=== PATIENT | male | born 1985 | race Caucasian/White ===

== ENCOUNTER 2020-09-10 11:57 | Emergency (ER) | payer BC, OTHER ==
[2020-09-10] MEDS ORDERED: Sodium Chloride 0.9% 1,000 ML ONE (12:42)
[2020-09-10] MEDS ORDERED: Sodium Chloride 0.9% 1,000 ML IV ONE (12:43)
--- NOTE | 2020-09-10 13:06 | EDM.PDOC ---
ED HPI GENERAL MEDICAL PROBLEM - General Chief Complaint: Gastrointestinal Problem Stated Complaint: DIARRHEA X 10 DAYS JOINT PAIN Time Seen by Provider: 09/10/20 12:12 Source of Information: Reports: Patient, RN Notes Reviewed History Limitations: Reports: No Limitations - History of Present Illness INITIAL COMMENTS - FREE TEXT/NARRATIVE: Patient is a 34-year-old male presenting to the emergency part with complaints of a 10-day history of diarrhea with onset of joint pain and cramping today. He reports that he was in [facility] and returned approximately 1 week ago. [facility] he was there, he developed diarrhea. Reports he did have bloody stools up until about 4 days ago. He was seen in the walk-in clinic at [place] 4 days ago and given a soft one-time dose of azithromycin 1 g p.o. Reports 1 day after this, the blood in his stool resolved. The frequency of episodes is also decreased. So far today he has only had one episode of diarrhea. Reports his abdominal cramping is significantly improved as well. Prior to antibiotic treatment, he was having 10-30 episodes of loose stools per day. He denies any fever or chills. States he was able to eat breakfast this morning. He has had no nausea or vomiting. Up until today, he had been drinking straight water with no electrolyte replacements. This morning he took some vitamins and has been drinking fluids with electrolytes. Denies any abdominal pain at this time. Generalized Pain Score (Numeric/FACES): 10 - Related Data Allergies Allergy/AdvReac Type Severity Reaction Status Date / Time No Known Allergies Allergy Verified 09/10/20 12:04 Home Meds: Home Meds . [No Known Home Meds] 09/10/20 [History] Past Medical History HEENT History: Reports: Impaired Vision Cardiovascular History: Reports: None Respiratory History: Reports: Bronchitis, Recurrent, Pneumonia, Recurrent Gastrointestinal History: Reports: GERD Genitourinary History: Reports: None Musculoskeletal History: Reports: Back Pain, Chronic Neurological History: Reports: None Psychiatric History: Reports: None Endocrine/Metabolic History: Reports: None Hematologic History: Reports: None Immunologic History: Reports: None Oncologic (Cancer) History: Reports: None Dermatologic History: Reports: None - Infectious Disease History Infectious Disease History: Reports: Novel Coronavirus - Past Surgical History HEENT Surgical History: Reports: Oral Surgery GI Surgical History: Reports: None Musculoskeletal Surgical History: Reports: None Social & Family History - Family History Family Medical History: No Pertinent Family History GI: Reports: Other (See Below) Other GI Family History: UC - Tobacco Use Tobacco Use Status *Q: Never Tobacco User - Caffeine Use Caffeine Use: Reports: Soda - Recreational Drug Use Recreational Drug Use: No ED ROS GENERAL - Review of Systems Review Of Systems: See Below Constitutional: Reports: No Symptoms. Denies: Fever, Chills, Weakness HEENT: Reports: No Symptoms Respiratory: Reports: No Symptoms Cardiovascular: Reports: No Symptoms Endocrine: Reports: No Symptoms GI/Abdominal: Reports: Abdominal Pain (intermittent cramping), Diarrhea. Denies: Nausea, Vomiting Musculoskeletal: Reports: Joint Pain, Other (muscle cramping) Skin: Reports: No Symptoms Neurological: Reports: No Symptoms. Denies: Dizziness, Headache Psychiatric: Reports: No Symptoms Hematologic/Lymphatic: Reports: No Symptoms Immunologic: Reports: No Symptoms ED EXAM, GI/ABD - Physical Exam Exam: See Below Exam Limited By: No Limitations General Appearance: Alert, WD/WN, No Apparent Distress Throat/Mouth: Other (dry mucous membranes) Respiratory/Chest: No Respiratory Distress, Lungs Clear, Normal Breath Sounds, No Accessory Muscle Use, Chest Non-Tender Cardiovascular: Normal Peripheral Pulses, Regular Rate, Rhythm, No Edema, No Gallop, No JVD, No Murmur, No Rub GI/Abdominal Exam: Normal Bowel Sounds, Soft, Non-Tender, No Organomegaly, No Distention, No Abnormal Bruit, No Mass, Pelvis Stable Extremities: Normal Inspection, Normal Range of Motion, Non-Tender, Normal Capillary Refill, No Pedal Edema Neurological: Alert, Oriented, CN II-XII Intact, Normal Cognition, Normal Gait, Normal Reflexes, No Motor/Sensory Deficits Psychiatric: Normal Affect, Normal Mood Skin Exam: Warm, Dry, Intact, Normal Color, No Rash Course - Vital Signs Last Recorded V/S: Last Vital Signs Temp 98.3 F 09/10/20 12:10 Pulse 76 09/10/20 12:10 Resp 18 09/10/20 12:10 BP 145/94 H 09/10/20 12:10 Pulse Ox 94 L 09/10/20 12:10 - Orders/Labs/Meds Orders: Active Orders 24 hr Category Date Time Status C DIFFICILE PCR W/REFLEX [MOLEC] Stat Lab 09/10/20 14:05 Received FECAL LACTOFERRIN [MREF] Stat Lab 09/10/20 14:05 Received STL CULT SHIGA TOX CAMPY AG [MREF] Stat Lab 09/10/20 14:05 Received Labs: Laboratory Tests 09/10/20 09/10/20 Range/Units 12:35 12:35 WBC 6.16 (4.23-9.07) K/mm3 RBC 4.56 L (4.63-6.08) M/mm3 Hgb 14.4 (13.7-17.5) gm/dl Hct 41.5 (40.1-51.0) % MCV 91.0 (79.0-92.2) fl MCH 31.6 (25.7-32.2) pg MCHC 34.7 (32.2-35.5) g/dl RDW Std Deviation 41.1 (35.1-43.9) fL Plt Count 322 (163-337) K/mm3 MPV 8.8 L (9.4-12.3) fl Neut % (Auto) 58.8 (34.0-67.9) % Lymph % (Auto) 20.5 L (21.8-53.1) % [place] % (Auto) 18.7 H (5.3-12.2) % Eos % (Auto) 1.5 (0.8-7.0) Baso % (Auto) 0.3 (0.1-1.2) % Neut # (Auto) 3.63 (1.78-5.38) K/mm3 Lymph # (Auto) 1.26 L (1.32-3.57) K/mm3 [place] # (Auto) 1.15 H (0.30-0.82) K/mm3 Eos # (Auto) 0.09 (0.04-0.54) K/mm3 Baso # (Auto) 0.02 (0.01-0.08) K/mm3 Manual Slide Review Abnormal smear Sodium 139 (136-145) mEq/L Potassium 3.4 L (3.5-5.1) mEq/L Chloride 102 (98-107) mEq/L Carbon Dioxide 25 (21-32) mEq/L Anion Gap 15.4 H (5-15) BUN 16 (7-18) mg/dL Creatinine 1.1 (0.7-1.3) mg/dL Est Cr Clr Drug Dosing 96.78 mL/min Estimated GFR (MDRD) > 60 (>60) mL/min BUN/Creatinine Ratio 14.5 (14-18) Glucose 92 (70-99) mg/dL Calcium 8.8 (8.5-10.1) mg/dL Magnesium 2.1 (1.8-2.4) mg/dL Total Bilirubin 0.5 (0.2-1.0) mg/dL AST 13 L (15-37) U/L ALT 26 (16-63) U/L Alkaline Phosphatase 70 (46-116) U/L Total Protein 7.0 (6.4-8.2) g/dl Albumin 3.4 (3.4-5.0) g/dl Globulin 3.6 gm/dL Albumin/Globulin Ratio 0.9 L (1-2) Lipase 95 (73-393) U/L Meds: Medications Discontinued Medications Generic Name Dose Route Start Last Admin Trade Name Dagoq PRN Reason Stop Dose Admin Sodium Chloride Confirm 09/10/20 12:42 09/10/20 13:54 Normal Saline Administered 09/10/20 12:43 Not Given Dose 1,000 mls @ as directed .ROUTE .STK-MED ONE Sodium Chloride 1,000 mls @ 999 mls/hr 09/10/20 12:43 09/10/20 12:43 Normal Saline IV 09/10/20 13:43 999 mls/hr ONETIME ONE Administration - Re-Assessments/Exams Free Text/Narrative Re-Assessment/Exam: Pt is a 34 year old male presenting to the ER with c/o a 10 day history of diarrhea with onset of joint pain and cramping today. He was treated 4 days ago with azithromycin 1 g in the clinic. His abdominal cramping, blood in his stools, and frequency of episodes of diarrhea have improved. Blood in the stool has completely resolved. I have ordered blood work as well as stool studies. I will give him a 1 L bolus of normal saline pending electrolyte results. 09/10/20 14:28 Hematology significant for potassium minimally low at 3.4, anion gap 15.4. Magnesium is normal. Stool WBCs and C. difficile are pending. Stool cultures will take a few days to result. Patient's symptoms have improved quite a bit since his treatment with azithromycin. He is only had 2 episodes of loose stool today as opposed to the 10 that he was having prior to this. He no longer has abdominal pain and is no longer having blood in his stools. Given his significant provement, further treatment with antibiotics not indicated at this time. Recommend that he change to fluid containing electrolytes including Gatorade and Powerade. If his C. difficile should come back positive, I will notify them, however my suspicion for this is quite low given his improvement. He will be notified when stool culture results are available. Discharge instructions as documented. Departure - Departure Time of Disposition: 14:30 Disposition: Home, Self-Care 01 Condition: Good Clinical Impression: Dysenteric diarrhea - Discharge Information *PRESCRIPTION DRUG MONITORING PROGRAM REVIEWED*: No *COPY OF PRESCRIPTION DRUG MONITORING REPORT IN PATIENT MARGARET: No Instructions: Diarrhea, Adult, [id number] Referrals: PCP,None [Primary Care Provider] - Forms: ED Department Discharge Additional Instructions: You were seen in the emergency department today for reevaluation after a 10-day history of diarrhea. Blood work was completed and was found to be overall normal. Stool studies are pending. You will be notified of these when they are available. Recommend changing to Gatorade, Powerade, or Pedialyte in order to replenish electrolytes as well. Your potassium and magnesium were found to be normal today however. You may use Tylenol or ibuprofen as needed for the joint discomfort. Symptoms should continue to improve over the next few days. If you should experience any new or worsening symptoms, please not hesitate to return to the emergency department for reevaluation. Sepsis Event Note (ED) - Evaluation Sepsis Screening Result: No Definite Risk - Focused Exam Vital Signs: Vital Signs Temp Pulse Resp BP Pulse Ox 09/10/20 12:10 98.3 F 76 18 145/94 H 94 L - My Orders Last 24 Hours: My Active Orders 09/10/20 14:05 C DIFFICILE PCR W/REFLEX [MOLEC] Stat FECAL LACTOFERRIN [MREF] Stat STL CULT SHIGA TOX CAMPY AG [MREF] Stat - Assessment/Plan Last 24 Hours: My Active Orders 09/10/20 14:05 C DIFFICILE PCR W/REFLEX [MOLEC] Stat FECAL LACTOFERRIN [MREF] Stat STL CULT SHIGA TOX CAMPY AG [MREF] Stat
== END 2020-09-10 14:43 | disposition home or self-care (01) ==
LOC: JD.ED 11:57
DX: A09 Infectious gastroenteritis and colitis, unspecified (principal)
CPT/HCPCS: 36415; 80053; 83630; 83690; 83735; 85025; 87045; 87046; 87449; 87493; 87899; 99284; J7030; 99283

== ENCOUNTER 2020-09-11 01:16 | Inpatient (IN) | payer OTHER ==
[2020-09-11] MEDS ORDERED: Acetaminophen/HYDROcodone 325-5 MG Tab PO ONE (01:57)
--- NOTE | 2020-09-11 02:11 | EDM.PDOC ---
ED HPI GENERAL MEDICAL PROBLEM - General Chief Complaint: Lower Extremity Injury/Pain Stated Complaint: EXTREME PAIN Time Seen by Provider: 09/11/20 01:30 Source of Information: Reports: Patient, Family () History Limitations: Reports: No Limitations - History of Present Illness INITIAL COMMENTS - FREE TEXT/NARRATIVE: Mr. Cancino is a very pleasant 34-year-old gentleman who now presents to the ED with severe bilateral leg pain. The patient states that he was in [facility] from 08/26/2020 through 09/04/2020. He acknowledges that he drank alcohol heavily while there. About 10 days ago he developed diarrhea, which was bloody for the first 6 days, then nonbloody thereafter. He had had abdominal cramps, but no nausea or vomiting. He was seen at the walk-in clinic on 09/06/2020, and given a one-time dose of azithromycin 1 g po. Since then, the frequency of his diarrhea has diminished, and the blood resolved. He then developed pain in his wrists and ankles 2 days ago, therefore was seen in this ED yesterday afternoon. He was found to be hemodynamically stable, afebrile, saturating 94% on room air. His physical exam was grossly unremarkable. Work-up included a CBC, CMP, magnesium level, and lipase level, all of which were normal. A stool for C. difficile was sent, and has since returned as negative. A stool culture and stool lactoferrin were also sent, but have not yet returned. He was discharged with a recommendation to stay adequately hydrated and take Tylenol or ibuprofen as needed for joint discomfort. The patient now returns to the ED stating that he developed severe bilateral leg pain, throbbing in character, yesterday afternoon, after discharge from the ED. The pain is felt primarily in the ankles, but also in his feet, in his calves, and his knees. No recent fever or chills. No personal or family history of gout. Here in the ED this morning, the patient's initial BP is found to be mildly elevated at 143/87, otherwise, he is hemodynamically stable, afebrile, saturating 95% on room air. He is complaining of bilateral lower extremity pain, but does not appear to be in acute distress. The patient's PCP was Dr. Raffi aMrtinez; the patient has not found a replacement PCP. 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 [No Known Home Meds] 09/10/20 [History] Past Medical History HEENT History: Reports: Impaired Vision Gastrointestinal History: Reports: GERD (treated prn) - Infectious Disease History Infectious Disease History: Reports: Novel Coronavirus (dx'd Jan 2020) - Past Surgical History HEENT Surgical History: Reports: Oral Surgery (dental extractions) Social & Family History - Family History GI: Reports: Inflammatory Bowel Disease (Sister with ulcerative colitis) - Tobacco Use Tobacco Use Status *Q: Never Tobacco User Second Hand Smoke Exposure: No - Caffeine Use Caffeine Use: Reports: None - Alcohol Use Alcohol Use History: Yes Alcohol Use Frequency: Socially - Recreational Drug Use Recreational Drug Use: No - Living Situation & Occupation Living situation: Reports: , with Spouse, with Family (1 7-year old) 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 ED EXAM, GENERAL - Physical Exam Exam: See Below Exam Limited By: No Limitations General Appearance: Alert, WD/WN, Mild Distress (apears uncomfortable) Eye Exam: Bilateral Eye: EOMI, Normal Inspection Ears: Normal External Exam, Hearing Grossly Normal Nose: Normal Inspection Throat/Mouth: Normal Inspection, Normal Lips, Normal Voice, No Airway Compromise Head: Atraumatic, Normocephalic Neck: Normal Inspection, Full Range of Motion Respiratory/Chest: No Respiratory Distress, Lungs Clear, Normal Breath Sounds, No Accessory Muscle Use Cardiovascular: Normal Peripheral Pulses, Regular Rate, Rhythm, No Gallop, No JVD, No Murmur, No Rub Peripheral Pulses: 3+: Radial (L), Radial (R) GI/Abdominal: Normal Bowel Sounds, Soft, Non-Tender, No Organomegaly, No Distention, No Abnormal Bruit, No Mass Back Exam: Normal Inspection, Full Range of Motion, NT Extremities: Normal Capillary Refill, Other (Pain is induced, primarily in the legs, with PROM of both knees, Lt > Rt. mild tenderness to palpation of the calf muscles, primarily felt in the ankles. The ankles appear to be mildly swollen, and there is significant pain to PROM bilaterally. Both feet are also tender to palpation, although palp) Neurological: Alert, Oriented, Normal Cognition, No Motor/Sensory Deficits Psychiatric: Normal Affect Skin Exam: Warm, Dry, Intact, Normal Color, No Rash Course - Vital Signs Last Recorded V/S: Last Vital Signs Temp 36.7 C 09/11/20 01:26 Pulse 85 09/11/20 01:26 Resp 14 09/11/20 01:26 BP 143/87 H 09/11/20 01:26 Pulse Ox 95 09/11/20 01:26 - Orders/Labs/Meds Labs: Laboratory Tests 09/11/20 09/11/20 Range/Units 02:05 03:00 Creatine Kinase 79 (39-308) U/L C-Reactive Protein 12.5 H* (<1.0) mg/dL SARS-CoV-2 RNA ([facility]) Negative (NEGATIVE) Meds: Medications Discontinued Medications Generic Name Dose Route Start Last Admin Trade Name Dagoq PRN Reason Stop Dose Admin Hydrocodone Bitart/Acetaminophen 2 tab 09/11/20 01:57 09/11/20 02:09 Acetaminophen/Hydrocodone 325-5 Mg Tab PO 09/11/20 01:58 2 tab ONETIME ONE Administration Hydromorphone HCl 1 mg 09/11/20 02:52 09/11/20 02:57 Hydromorphone 1 Mg/Ml Syringe IM 09/11/20 02:53 1 mg ONETIME ONE Administration Hydromorphone HCl 1 mg 09/11/20 04:14 09/11/20 04:32 Hydromorphone 1 Mg/Ml Syringe IM 09/11/20 04:15 1 mg ONETIME ONE Administration Hydromorphone HCl 1 mg 09/11/20 06:42 Hydromorphone 1 Mg/Ml Syringe IM 09/11/20 06:43 ONETIME ONE - Re-Assessments/Exams Free Text/Narrative Re-Assessment/Exam: 09/11/20 02:05 As above, the patient was in [facility], from 08/26/2020 through 09/04/2020. While there, he developed diarrhea, which persisted for about 10 days, and was bloody for the first 6 of them. He had pain to his wrists and ankles for the past 2 days, and bilateral leg pain since this afternoon. A work-up in this ED yesterday afternoon included a CBC, CMP, magnesium level, and lipase level, all of which were unremarkable. A stool C. difficile has since returned negative. A stool culture and lactoferrin are still pending. On examination this morning, the patient has pain to his legs with PROM of both of his knees, worse on the left than the right. It is unclear if he has pain within the knees themselves. Minimal tenderness to palpation of his calf muscles, but he has significant tenderness to palpation of his ankles or feet, and to PROM of his ankles. Minimal pain with PROM of the MTPs of any of his toes. He likely has mild swelling to both of his ankles, but no skin abnormalities. I think the patient's differential diagnosis includes pseudogout, but, more likely, giardiasis. As above, a stool culture was sent yesterday. For tonight's purposes, I have ordered a CPK, to make sure that rhabdomyolysis is not present, and a CRP, to look for inflammatory markers. I do not see an indication to repeat the blood work already done yesterday. In the meantime, the patient will be given 2 tablets of [place], to help with his pain. 09/11/20 02:48 The patient's CPK is within normal limits at 79. His CRP is elevated at 12.5. 09/11/20 02:52 Test results discussed with the patient and his . As above, the patient's CRP is elevated, which can occur with infection, vasculitis, or cancer. Because the patient has no skin manifestations or decreased temperature to his lower extremities, my suspicion for vasculitis is low, and I have no reason to suspect cancer. Giardiasis, however, could cause an elevated CRP, as could a repeat infection with COVID-19 (he originally had it in Jan 2019). I therefore recommended that we retest him for COVID-19. The patient agreed. The patient states that the [place] barely helped his pain at all, and he requested additional pain medication. I ordered 1 mg of IM Dilaudid. 09/11/20 04:13 The patient's swab for the SARS-CoV-2 virus returned negative. Notified by Lila TELLEZ that the patient requested additional pain medication. I will order additional IM Dilaudid. 09/11/20 04:17 Test results discussed with the patient and his . One option would be to discharge the patient home with a prescription for [place] and have him follow-up, however, the [place] that he received earlier did not really do much of anything for him, therefore the other option would be to place him into observation/admit him to the hospital for not only pain control, but further evaluation as to the cause of his pain and elevated CRP. The patient prefers the latter. I will keep the patient here in the ED, then contact the Hospitalist around 6:30 AM. 09/11/20 06:[address] Ortiz here in the ED. He accepted the patient for placement into observation. Departure - Departure Time of Disposition: 06:49 Disposition: Refer to Observation Condition: Good Clinical Impression: Polyarthralgia - Discharge Information *PRESCRIPTION DRUG MONITORING PROGRAM REVIEWED*: Not Applicable *COPY OF PRESCRIPTION DRUG MONITORING REPORT IN PATIENT MARGARET: Not Applicable Referrals: PCP,None [Primary Care Provider] - Forms: ED Department Discharge Sepsis Event Note (ED) - Evaluation Sepsis Screening Result: No Definite Risk - Focused Exam Vital Signs: Vital Signs Temp Pulse Resp BP Pulse Ox 09/11/20 01:26 36.7 C 85 14 143/87 H 95
[2020-09-11] MEDS ORDERED: HYDROmorphone 1 MG/ML Syringe IM ONE ×3 (02:52→06:42)
[2020-09-11] MEDS ORDERED: Ondansetron 4 MG Tab.DIS PO PRN (07:05)
[2020-09-11] MEDS ORDERED: Temazepam 7.5 MG Cap PO PRN (07:05)
--- NOTE | 2020-09-11 07:09 | PCM.HP.2 ---
H&P History of Present Illness - General Date of Service: 09/11/20 Admit Problem/Dx: Admission Diagnosis/Problem Admission Diagnosis/Problem severe watery diarrhea with severe arthropathy of multiple joints. Source of Information: Patient History Limitations: Reports: No Limitations - History of Present Illness Initial Comments - Free Text/Narative: The patient is an otherwise healthy 34-year-old gentleman who had presented to the emergency department with severe watery diarrhea that has been associated with severe bilateral ankle and knee pain. The patient reports that for the past 6 days that he has had severe watery and foul-smelling diarrhea up to 20 times a day. The patient also reports that he had returned from [facility] on September 04, 2020. The patient had stayed his entire time in [facility] [place] the [place]. Further, the patient reports that he has had severe bilateral leg pain which started approximately 4 days ago. He has had difficulty ambulating due to the pain in his knees and ankles. The patient has denied any fever or chills. He has had some nausea but no vomiting. Abdominal cramping generalized. The patient has had no specific aggravating or relieving factors. The patient also reports that he has not been taking any medications. He does not use tobacco. While in the emergency department the patient had required the use of Dilaudid to help with his pain in his joints. Onset of Symptoms: Reports: Gradual Duration of Symptoms: Reports: Day(s):, Getting Worse Location: Reports: Abdomen, Generalized Quality: Reports: Burning, Stabbing Severity: Moderate Improves with: Reports: Medication, Rest Worsens with: Reports: Movement Context: Reports: Travel (Travel to [place] see HPI). Denies: Sick Contact Associated Symptoms: Reports: No Other Symptoms Bilateral Lower Leg Pain Score (Numeric/FACES): 10 - Related Data Allergies/Adverse Reactions: Allergies Allergy/AdvReac Type Severity Reaction Status Date / Time No Known Allergies Allergy Verified 09/11/20 09:12 Home Medications: Home Meds . [No Known Home Meds] 09/10/20 [History] Past Medical History HEENT History: Reports: Impaired Vision Cardiovascular History: Reports: None Respiratory History: Reports: Bronchitis, Recurrent, Pneumonia, Recurrent Gastrointestinal History: Reports: GERD (treated prn) Genitourinary History: Reports: None Musculoskeletal History: Reports: Back Pain, Chronic Neurological History: Reports: None Psychiatric History: Reports: None Endocrine/Metabolic History: Reports: None Hematologic History: Reports: None Immunologic History: Reports: None Oncologic (Cancer) History: Reports: None Dermatologic History: Reports: None - Infectious Disease History Infectious Disease History: Reports: Novel Coronavirus (dx'd Jan 2020) - Past Surgical History HEENT Surgical History: Reports: Oral Surgery (dental extractions) Social & Family History - Family History Family Medical History: No Pertinent Family History GI: Reports: Inflammatory Bowel Disease (Sister with ulcerative colitis) Other GI Family History: UC - Tobacco Use Tobacco Use Status *Q: Never Tobacco User Second Hand Smoke Exposure: No - Caffeine Use Caffeine Use: Reports: None - Recreational Drug Use Recreational Drug Use: No - Living Situation & Occupation Living situation: Reports: , with Spouse, with Family (1 7-year old) 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) H&P Review of Systems - Review of Systems: Review Of Systems: See Below General: Reports: Weakness, Decreased Appetite HEENT: Reports: No Symptoms Pulmonary: Reports: No Symptoms Cardiovascular: Reports: No Symptoms Gastrointestinal: Reports: Abdominal Pain, Diarrhea, Nausea Genitourinary: Reports: No Symptoms Musculoskeletal: Reports: Other (Multiple major joint pains) Skin: Reports: No Symptoms Psychiatric: Reports: No Symptoms Neurological: Reports: No Symptoms Hematologic/Lymphatic: Reports: No Symptoms Immunologic: Reports: No Symptoms Exam - Exam Exam: See Below - Vital Signs Vital Signs: Last Vital Signs Temp 36.7 C 09/11/20 01:26 Pulse 85 09/11/20 01:26 Resp 14 09/11/20 01:26 BP 143/87 H 09/11/20 01:26 Pulse Ox 95 09/11/20 01:26 Weight: 86.183 kg - Exam Quality Assessment: No: Supplemental Oxygen, DVT Prophylaxis General: Alert, Oriented, Cooperative HEENT: Conjunctiva Clear, EACs Clear, EOMI, Hearing Intact, PERRLA. No: Mucosa Moist & [place] (Dry) Neck: Supple, Trachea Midline Lungs: Clear to Auscultation, Normal Respiratory Effort Cardiovascular: Regular Rate, Regular Rhythm, Normal S1, Normal S2 GI/Abdominal Exam: Soft, No Distention, Tender (Mild generalized). No: Normal Bowel Sounds (Hyperactive), Guarding, Rigid, Rebound (Male) Exam: Deferred Rectal (Males) Exam: Deferred Back Exam: Normal Inspection, Full Range of Motion Extremities: Joint Swelling (Bilateral ankles), Limited Range of Motion (Painful passive range of motion). No: Normal Range of Motion (Not normal due to pain) Skin: Warm, Dry, Intact Neurological: Cranial Nerves Intact, Normal Speech. No: Normal Gait Neuro Extensive - Mental Status: Alert, Oriented x3, Normal Mood/Affect, Normal Cognition, Memory Intact Psychiatric: Alert, Normal Affect, Normal Mood - Patient Data Lab Results Last 24 hrs: Laboratory Results - last 24 hr 09/11/20 09/11/20 Range/Units 02:05 03:00 Creatine Kinase 79 (39-308) U/L C-Reactive Protein 12.5 H* (<1.0) mg/dL SARS-CoV-2 RNA ([facility]) Negative (NEGATIVE) Sepsis Event Note - Evaluation Sepsis Screening Result: No Definite Risk - Focused Exam Vital Signs: Vital Signs Temp Pulse Resp BP Pulse Ox 09/11/20 01:26 36.7 C 85 14 143/87 H 95 - Problem List (1) Dysenteric diarrhea SNOMED Code(s): 21240504 ICD Code: A09 - INFECTIOUS GASTROENTERITIS AND COLITIS, UNSPECIFIED Status: Acute Priority: High Current Visit: Yes (2) Polyarthralgia SNOMED Code(s): 52843424 ICD Code: M25.50 - PAIN IN UNSPECIFIED JOINT Status: Acute Priority: High Current Visit: Yes Problem List Initiated/Reviewed/Updated: Yes Orders Last 24hrs: Active Orders 24 hr Category Date Time Status Admission Status [Patient Status] [ADT] Routine ADT 09/11/20 06:58 Active Antiembolic Devices [RC] PER UNIT ROUTINE Care 09/11/20 07:07 Ordered Cardiac Monitoring [RC] INTERMITTENT Care 09/11/20 07:06 Ordered Oxygen Therapy [RC] PRN Care 09/11/20 07:06 Ordered Up ad Radha [RC] ASDIRECTED Care 09/11/20 07:05 Ordered VTE/DVT Education [RC] PER UNIT ROUTINE Care 09/11/20 07:06 Ordered Vital Signs [RC] Q4H Care 09/11/20 07:06 Ordered Regular Diet [DIET] Diet 09/11/20 Lunch Ordered C-REACTIVE PROTEIN [CHEM] AM Lab 09/12/20 05:11 Ordered CBC WITH AUTO DIFF [HEME] AM Lab 09/12/20 05:11 Ordered COMPREHENSIVE METABOLIC PN,CMP [CHEM] AM Lab 09/12/20 05:11 Ordered MAGNESIUM [CHEM] AM Lab 09/12/20 05:11 Ordered Acetaminophen [TylenoL] Med 09/11/20 07:05 Ordered 650 mg PO Q4H PRN HYDROmorphone [Dilaudid] Med 09/11/20 07:05 Ordered 0.5 mg IVPUSH Q2H PRN Ondansetron [Zofran ODT] Med 09/11/20 07:05 Ordered 4 mg PO Q4H PRN Ondansetron [Zofran] Med 09/11/20 07:05 Ordered 4 mg IV Q6H PRN Sodium Chloride 0.9% [Normal Saline] 1,000 ml Med 09/11/20 07:15 Ordered IV ASDIRECTED Temazepam [Restoril] Med 09/11/20 07:05 Ordered 7.5 mg PO BEDTIME PRN Sequential Compression Device [OM.PC] Per Unit Routine Oth 09/11/20 07:06 Ordered Resuscitation Status Routine Resus Stat 09/11/20 07:05 Ordered Assessment/Plan Comment:: The patient is a 34-year-old gentleman who had been admitted to observation secondary to his joint pain as well as his diarrhea which is likely infectious in nature. Multiple stool studies are currently pending. Have also ordered studies for Giardia. The patient will be kept on IV fluids normal saline at 150 mL/h to help with his dehydration. The patient will also be afforded narcotic pain medications Dilaudid 1 mg IV every 2 hours as needed for pain. The patient will also be anticoagulated for DVT prophylaxis with the use of Lovenox at 30 mg subcutaneous on a daily basis. Repeat laboratory studies have been ordered. Consider Flagyl if Giardia tests are positive. Viral enteritis, to include Zika, is also in the differential for him. The patient should be appropriate for discharge once symptoms have resolved likely tomorrow. - Mortality Measure Prognosis:: Good
[2020-09-11] MEDS: Sodium Chloride 0.9% 1,000 ML IV SCH ×3 (08:34→22:34)
[2020-09-11] MEDS: HYDROmorphone 0.5 MG/0.5 ML Syringe IVPUSH PRN ×6 (12:02→22:32)
[2020-09-11] MEDS: Ondansetron 4 MG/2 ML SDV IV PRN (12:03)
[2020-09-11] MEDS: Acetaminophen 325 MG Tab PO PRN ×3 (13:16→22:33)
[2020-09-11] MEDS: Acetaminophen/HYDROcodone 325-10 MG Tab PO PRN ×2 (15:05→19:05)
[2020-09-11] MEDS ORDERED: Enoxaparin 30 MG/0.3 ML Syringe SUBCUT SCH (16:00)
[2020-09-12] MEDS: HYDROmorphone 0.5 MG/0.5 ML Syringe IVPUSH PRN (02:52)
[2020-09-12] MEDS: Acetaminophen 325 MG Tab PO PRN ×2 (02:54→22:46)
[2020-09-12] MEDS: Sodium Chloride 0.9% 1,000 ML IV SCH (05:17)
[2020-09-12] MEDS: Acetaminophen/HYDROcodone 325-10 MG Tab PO PRN (05:17)
[2020-09-12] MEDS ORDERED: Piperacillin/Tazobactam 4.5 GM in Sodium Chloride 0.9% 100 ML IV ONE (09:00)
[2020-09-12] MEDS ORDERED: HYDROmorphone 1 MG/ML Syringe IVPUSH PRN (09:05)
[2020-09-12] MEDS ORDERED: Potassium Chloride 10 MEQ in Premix Bag 1 BAG IV ONE (09:07)
[2020-09-12] MEDS ORDERED: Lactated Ringers 1,000 ML IV SCH (09:15)
[2020-09-12] MEDS ORDERED: metroNIDAZOLE/Normal Saline 500 MG in Premix Bag 1 BAG IV SCH (09:15)
[2020-09-12] MEDS: Potassium Chloride 10 MEQ in Premix Bag 1 BAG IV SCH ×2 (09:47→12:08)
[2020-09-12] MEDS ORDERED: Diatrizoate Meglumine/Diatrizoate Sodium 37% 120 ML Bottle PO ONE (10:30)
[2020-09-12] MEDS ORDERED: Iopamidol 612 MG/ML 100 ML Bottle IVPUSH ONE (10:30)
[2020-09-12] MEDS ORDERED: Sodium Chloride 0.9% 10 ML Syringe FLUSH PRN (10:48)
--- NOTE | 2020-09-12 11:05 | CT ---
CT abdomen and pelvis Technique: Multiple axial sections were obtained from above the dome of the diaphragm inferiorly through the pubic symphysis. Intravenous and oral contrast was utilized. Delayed images were also obtained through the bladder. Reconstructed coronal and sagittal images were obtained. Comparison: No previous abdominal imaging is available. Findings: Very minimal pleural effusions are seen on both sides. Areas of parenchymal density are noted posteriorly within both lung bases compatible with atelectasis. Liver contains no focal abnormality. Spleen size is normal. Minimal contrast is noted within the distal esophagus compatible with slight gastroesophageal reflux. Spleen size is normal. Adrenal glands show no nodule. Kidneys show symmetric contrast enhancement without hydronephrosis or mass. Delayed images show contrast within the distal ureters as well as within the bladder. Abdominal aorta shows no aneurysm. No retroperitoneal adenopathy or mesenteric abnormalities are seen. Appendix is seen which is normal in size. No pelvic mass or adenopathy is seen. Small amount of fluid is seen off the tip of the cecum. There is inflammatory change being seen around a portion of the descending colon which show slight wall thickening. Findings are most likely due to diverticulitis. Bone window settings were reviewed which show no acute osseous abnormality. Impression: 1. Findings which are felt compatible with mild diverticulitis involving the descending colon. 2. Small amount of free fluid inferior to the cecum which most likely relates to the left-sided diverticulitis. 3. Minimal bilateral pleural effusions with areas of atelectasis within both posterior lung bases. Diagnostic code #3
[2020-09-12] MEDS: HYDROmorphone 1 MG/ML Syringe IVPUSH PRN ×4 (11:14→20:54)
[2020-09-12] MEDS ORDERED: Potassium Chloride 10 MEQ in Premix Bag 1 BAG IV SCH (12:00)
--- NOTE | 2020-09-12 13:01 | PCM.PN ---
- General Info Date of Service: 09/12/20 Admission Dx/Problem (Free Text): Admission Diagnosis/Problem Admission Diagnosis/Problem severe watery diarrhea with severe arthropathy of multiple joints. Subjective Update: The patient underwent CT AP showing diverticulitis Still has bilateral ankle pain and swelling Increased abdominal pain made NPO this morning intermittent fever overnight denies chest pain and sob - Review of Systems General: Reports: Fever, Weakness, Fatigue, Malaise, Chills Gastrointestinal: Reports: Abdominal Pain, Diarrhea - Patient Data Vitals - Most Recent: Last Vital Signs Temp 98.8 F 09/12/20 11:24 Pulse 82 09/12/20 11:24 Resp 16 09/12/20 11:24 BP 137/77 09/12/20 11:24 Pulse Ox 96 09/12/20 11:24 Weight - Most Recent: 196 lb 9.6 oz I&O - Last 24 Hours: Intake & Output 09/11/20 09/12/20 09/12/20 22:59 06:59 14:59 Intake Total 1808 2600 Output Total 1000 950 Balance 808 1650 Imaging Impressions - Last 24 Hours: CT AP reviewed in EMR notable for sigmoid diverticulitis Lab Results Last 24 Hours: Laboratory Results - last 24 hr 09/12/20 09/12/20 09/12/20 Range/Units 05:49 05:49 09:08 WBC 11.74 H (4.23-9.07) K/mm3 RBC 4.03 L (4.63-6.08) M/mm3 Hgb 12.7 L D (13.7-17.5) gm/dl Hct 37.4 L (40.1-51.0) % MCV 92.8 H (79.0-92.2) fl MCH 31.5 (25.7-32.2) pg MCHC 34.0 (32.2-35.5) g/dl RDW Std Deviation 41.5 (35.1-43.9) fL Plt Count 323 (163-337) K/mm3 MPV 8.9 L (9.4-12.3) fl Neut % (Auto) 74.8 H (34.0-67.9) % Lymph % (Auto) 10.2 L (21.8-53.1) % [place] % (Auto) 14.3 H (5.3-12.2) % Eos % (Auto) 0.2 L (0.8-7.0) Baso % (Auto) 0.2 (0.1-1.2) % Neut # (Auto) 8.78 H (1.78-5.38) K/mm3 Lymph # (Auto) 1.20 L (1.32-3.57) K/mm3 [place] # (Auto) 1.68 H (0.30-0.82) K/mm3 Eos # (Auto) 0.02 L (0.04-0.54) K/mm3 Baso # (Auto) 0.02 (0.01-0.08) K/mm3 Manual Slide Review Abnormal smear Sodium 137 (136-145) mEq/L Potassium 3.4 L (3.5-5.1) mEq/L Chloride 101 (98-107) mEq/L Carbon Dioxide 23 (21-32) mEq/L Anion Gap 16.4 H (5-15) BUN 6 L (7-18) mg/dL Creatinine 0.9 (0.7-1.3) mg/dL Est Cr Clr Drug Dosing 118.29 mL/min Estimated GFR (MDRD) > 60 (>60) mL/min BUN/Creatinine Ratio 6.7 L (14-18) Glucose 119 H (70-99) mg/dL Lactic Acid 0.7 (0.4-2.0) mmol/L Calcium 8.0 L (8.5-10.1) mg/dL Magnesium 1.8 (1.8-2.4) mg/dL Total Bilirubin 0.8 (0.2-1.0) mg/dL AST 13 L (15-37) U/L ALT 27 (16-63) U/L Alkaline Phosphatase 77 (46-116) U/L C-Reactive Protein 25.4 H* (<1.0) mg/dL Total Protein 6.8 (6.4-8.2) g/dl Albumin 2.9 L (3.4-5.0) g/dl Globulin 3.9 gm/dL Albumin/Globulin Ratio 0.7 L (1-2) Andrea Results Last 24 Hours: Microbiology 09/10/20 14:05 Cryptosporidium/Giardia - Final Stool / Feces Med Orders - Current: Current Medications Acetaminophen (Acetaminophen 325 Mg Tab) 650 mg PO Q4H PRN PRN Reason: Pain (Mild 1-3)/fever Last Admin: 09/12/20 02:54 Dose: 650 mg Documented by: Hydrocodone Bitart/Acetaminophen (Acetaminophen/Hydrocodone 325-10 Mg Tab) 1 tab PO Q4H PRN PRN Reason: Pain Last Admin: 09/12/20 05:17 Dose: 1 tab Documented by: Enoxaparin Sodium (Enoxaparin 30 Mg/0.3 Ml Syringe) 30 mg SUBCUT Q24H TISHA Last Admin: 09/11/20 16:51 Dose: 30 mg Documented by: Hydromorphone HCl (Hydromorphone 1 Mg/Ml Syringe) 1 mg IVPUSH Q1H PRN PRN Reason: Pain Last Admin: 09/12/20 11:14 Dose: 1 mg Documented by: Piperacillin Sod/Tazobactam (Sod 4.5 gm/ Sodium Chloride) 100 mls @ 25 mls/hr IV Q8H TISHA Ondansetron HCl (Ondansetron 4 Mg Tab.Dis) 4 mg PO Q4H PRN PRN Reason: nausea, able to take PO Last Admin: 09/12/20 06:46 Dose: 4 mg Documented by: Ondansetron HCl (Ondansetron 4 Mg/2 Ml Sdv) 4 mg IV Q6H PRN PRN Reason: Nausea/Vomiting Last Admin: 09/11/20 12:03 Dose: 4 mg Documented by: Oxycodone HCl (Oxycodone 5 Mg Tab) 5 mg PO Q4H PRN PRN Reason: Pain Potassium Chloride (Potassium Chloride 20 Meq Tab.Er) 20 meq PO ONETIME ONE Stop: 09/12/20 14:01 Sodium Chloride (Sodium Chloride 0.9% 10 Ml Syringe) 10 ml FLUSH ONETIME PRN PRN Reason: Keep Vein Open Last Admin: 09/12/20 10:58 Dose: 10 ml Documented by: Temazepam (Temazepam 7.5 Mg Cap) 7.5 mg PO BEDTIME PRN PRN Reason: Sleep Discontinued Medications Hydrocodone Bitart/Acetaminophen (Acetaminophen/Hydrocodone 325-5 Mg Tab) 2 tab PO ONETIME ONE Stop: 09/11/20 01:58 Last Admin: 09/11/20 02:09 Dose: 2 tab Documented by: Diatrizoate Meglum/Diatrizoate Sod (Diatrizoate Meglumine/Diatrizoate Sodium 37% 120 Ml Bottle) 70 ml PO ONETIME ONE Stop: 09/12/20 10:31 Last Admin: 09/12/20 10:47 Dose: 60 ml Documented by: Hydromorphone HCl (Hydromorphone 1 Mg/Ml Syringe) 1 mg IM ONETIME ONE Stop: 09/11/20 02:53 Last Admin: 09/11/20 02:57 Dose: 1 mg Documented by: Hydromorphone HCl (Hydromorphone 1 Mg/Ml Syringe) 1 mg IM ONETIME ONE Stop: 09/11/20 04:15 Last Admin: 09/11/20 04:32 Dose: 1 mg Documented by: Hydromorphone HCl (Hydromorphone 1 Mg/Ml Syringe) 1 mg IM ONETIME ONE Stop: 09/11/20 06:43 Last Admin: 09/11/20 06:55 Dose: 1 mg Documented by: Hydromorphone HCl (Hydromorphone 0.5 Mg/0.5 Ml Syringe) 0.5 mg IVPUSH Q2H PRN PRN Reason: Pain (severe 7-10) Last Admin: 09/12/20 02:52 Dose: 0.5 mg Documented by: Hydromorphone HCl (Hydromorphone 1 Mg/Ml Syringe) 1 mg IVPUSH Q2H PRN PRN Reason: Pain Sodium Chloride (Normal Saline) 1,000 mls @ 150 mls[facility] Last Admin: 09/12/20 05:17 Dose: 150 mls/hr Documented by: Piperacillin Sod/Tazobactam (Sod 4.5 gm/ Sodium Chloride) 100 mls @ 200 mls/hr IV ONETIME ONE Stop: 09/12/20 09:29 Last Admin: 09/12/20 09:22 Dose: 200 mls/hr Documented by: Lactated Ringer's (Ringers, Lactated) 1,000 mls @ 100 mls/hr [facility] Last Admin: 09/12/20 11:58 Dose: 100 mls/hr Documented by: Potassium Chloride 10 meq/ (Premix) 100 mls @ 100 mls/hr IV ONETIME ONE Stop: 09/12/20 10:06 Last Admin: 09/12/20 12:08 Dose: Not Given Documented by: Potassium Chloride 10 meq/ (Premix) 100 mls @ 100 mls/hr IV Q1H TISHA Stop: 09/12/20 13:14 Last Admin: 09/12/20 12:08 Dose: Not Given Documented by: Magnesium Sulfate/Dextrose 1 (gm/ Premix) 100 mls @ 100 mls/hr IV Q1H TISHA Stop: 09/12/20 10:14 Last Admin: 09/12/20 09:47 Dose: 100 mls/hr Documented by: Metronidazole 500 mg/ Premix 100 mls @ 100 mls/hr IV Q8H TISHA Last Admin: 09/12/20 10:57 Dose: 100 mls/hr Documented by: Potassium Chloride 10 meq/ (Premix) 100 mls @ 100 mls/hr IV Q1H TISHA Stop: 09/12/20 14:59 Last Admin: 09/12/20 12:06 Dose: 100 mls/hr Documented by: Iopamidol (Iopamidol 612 Mg/Ml 100 Ml Bottle) 100 ml IVPUSH ONETIME ONE Stop: 09/12/20 10:31 Last Admin: 09/12/20 10:47 Dose: 100 ml Documented by: - Exam Physical Findings Comments:: Gen: appears uncomfortable HEENT: NCAT EOMI MMM CV :RRR normal s1 s2 Lungs: CTAB Abd: mild generalized tenderness no rebound or guarding MSK: bilateral edema of ankle joints; tender to palpation Psych: appropriate affect - Patient Data Lab Results Last 24 hrs: Laboratory Results - last 24 hr 09/12/20 09/12/20 09/12/20 Range/Units 05:49 05:49 09:08 WBC 11.74 H (4.23-9.07) K/mm3 RBC 4.03 L (4.63-6.08) M/mm3 Hgb 12.7 L D (13.7-17.5) gm/dl Hct 37.4 L (40.1-51.0) % MCV 92.8 H (79.0-92.2) fl MCH 31.5 (25.7-32.2) pg MCHC 34.0 (32.2-35.5) g/dl RDW Std Deviation 41.5 (35.1-43.9) fL Plt Count 323 (163-337) K/mm3 MPV 8.9 L (9.4-12.3) fl Neut % (Auto) 74.8 H (34.0-67.9) % Lymph % (Auto) 10.2 L (21.8-53.1) % [place] % (Auto) 14.3 H (5.3-12.2) % Eos % (Auto) 0.2 L (0.8-7.0) Baso % (Auto) 0.2 (0.1-1.2) % Neut # (Auto) 8.78 H (1.78-5.38) K/mm3 Lymph # (Auto) 1.20 L (1.32-3.57) K/mm3 [place] # (Auto) 1.68 H (0.30-0.82) K/mm3 Eos # (Auto) 0.02 L (0.04-0.54) K/mm3 Baso # (Auto) 0.02 (0.01-0.08) K/mm3 Manual Slide Review Abnormal smear Sodium 137 (136-145) mEq/L Potassium 3.4 L (3.5-5.1) mEq/L Chloride 101 (98-107) mEq/L Carbon Dioxide 23 (21-32) mEq/L Anion Gap 16.4 H (5-15) BUN 6 L (7-18) mg/dL Creatinine 0.9 (0.7-1.3) mg/dL Est Cr Clr Drug Dosing 118.29 mL/min Estimated GFR (MDRD) > 60 (>60) mL/min BUN/Creatinine Ratio 6.7 L (14-18) Glucose 119 H (70-99) mg/dL Lactic Acid 0.7 (0.4-2.0) mmol/L Calcium 8.0 L (8.5-10.1) mg/dL Magnesium 1.8 (1.8-2.4) mg/dL Total Bilirubin 0.8 (0.2-1.0) mg/dL AST 13 L (15-37) U/L ALT 27 (16-63) U/L Alkaline Phosphatase 77 (46-116) U/L C-Reactive Protein 25.4 H* (<1.0) mg/dL Total Protein 6.8 (6.4-8.2) g/dl Albumin 2.9 L (3.4-5.0) g/dl Globulin 3.9 gm/dL Albumin/Globulin Ratio 0.7 L (1-2) Result Diagrams: 09/12/20 05:49 09/12/20 05:49 Andrea Results Last 24 hrs: Microbiology 09/10/20 14:05 Cryptosporidium/Giardia - Final Stool / Feces Imaging Impressions Last 24 hrs: CT AP notable for diverticulitis Sepsis Event Note - Evaluation Sepsis Screening Result: No Definite Risk - Focused Exam Vital Signs: Vital Signs Temp Pulse Resp BP Pulse Ox 09/12/20 11:24 98.8 F 82 16 137/77 96 09/12/20 08:17 98.2 F 84 18 142/84 H 96 09/12/20 04:46 100.4 F 89 16 146/85 H 97 09/12/20 01:39 98.8 F 93 14 161/84 H 96 - Problem List Review Problem List Initiated/Reviewed/Updated: Yes - My Orders Last 24 Hours: My Active Orders 09/12/20 09:13 HYDROmorphone [Dilaudid] 1 mg IVPUSH Q1H PRN 09/12/20 Lunch Clear Liquid Diet [DIET] 09/12/20 12:50 oxyCODONE 5 mg PO Q4H PRN 09/12/20 14:00 Potassium Chloride [Klor-Con M20] 20 meq PO ONETIME ONE 09/12/20 17:00 Piperacillin/Tazobactam [Piperacil-Tazobact] 4.5 gm Sodium Chloride 0.9% [Normal Saline] 100 ml IV Q8H - Plan Plan:: 09/10 The patient is a 34-year-old gentleman who had been admitted to observation secondary to his joint pain as well as his diarrhea which is likely infectious in nature. Multiple stool studies are currently pending. Have also ordered studies for Giardia. The patient will be kept on IV fluids normal saline at 150 mL/h to help with his dehydration. The patient will also be afforded narcotic pain medications Dilaudid 1 mg IV every 2 hours as needed for pain. The patient will also be anticoagulated for DVT prophylaxis with the use of Lovenox at 30 mg subcutaneous on a daily basis. Repeat laboratory studies have been ordered. Consider Flagyl if Giardia tests are positive. Viral enteritis, to include Zika, is also in the differential for him. __ _ 09/12 CT AP notable for diverticulitis 1. Sigmoid diverticulitis+ acute diarrhea+abdominal pain -clear liquid diet -continue zosyn -dc flagyl -follow up on stool studies/Cx -dc IVF -repeat lactate normal -outpatient colonoscopy in 6-10 weeks 2. Hypokalemia and hypomagnesemia -electrolyte replacement -repeat BMP in AM DVT ppx: lovenox Code Status: Full Dispo: Change to inpatient; likely discharge to home in 2 days
[2020-09-12] MEDS ORDERED: Potassium Chloride 20 MEQ Tab.ER PO ONE (14:00)
[2020-09-12] MEDS: Enoxaparin 40 MG/0.4 ML Syringe SUBCUT SCH (16:19)
[2020-09-12] MEDS: Piperacillin/Tazobactam 4.5 GM in Sodium Chloride 0.9% 100 ML IV SCH (16:42)
[2020-09-12] MEDS: oxyCODONE 5 MG Tab PO PRN ×2 (17:34→22:46)
[2020-09-12 21:46] LABS: BORDETELLA PARAPERT IS1001 Not Detected (Not Detected)
[2020-09-12] MEDS ORDERED: Ketorolac 15 MG/ML SDV IVPUSH ONE (22:59)
[2020-09-13] MEDS: Piperacillin/Tazobactam 4.5 GM in Sodium Chloride 0.9% 100 ML IV SCH ×3 (00:09→16:22)
[2020-09-13] MEDS: Simethicone 80 MG Tab.Chew PO PRN ×2 (02:25→13:28)
[2020-09-13] MEDS: Ondansetron 4 MG/2 ML SDV IV PRN (02:25)
[2020-09-13] MEDS: Acetaminophen 325 MG Tab PO PRN ×2 (05:26→18:53)
[2020-09-13] MEDS: oxyCODONE 5 MG Tab PO PRN (05:27)
--- NOTE | 2020-09-13 10:26 | PCM.PN ---
- General Info Date of Service: 09/13/20 Subjective Update: Patient has improved joint pain in ankles still having diarrhea Fever last night abdominal pain improved a little hesitant to advance diet Stool Cx growing Salmonella - Review of Systems Systems Review Comment:: 10 Point ROS is negative except as noted above - Patient Data Vitals - Most Recent: Last Vital Signs Temp 99.0 F 09/13/20 07:59 Pulse 77 09/13/20 07:59 Resp 12 09/13/20 07:59 BP 119/63 09/13/20 07:59 Pulse Ox 96 09/13/20 07:59 Weight - Most Recent: 196 lb 3.2 oz I&O - Last 24 Hours: Intake & Output 09/12/20 09/13/20 09/13/20 22:59 06:59 14:59 Intake Total 1877 1000 Output Total 1300 Balance 577 1000 Lab Results Last 24 Hours: Laboratory Results - last 24 hr 09/10/20 09/11/20 09/13/20 Range/Units 14:05 03:00 04:56 WBC 10.67 H (4.23-9.07) K/mm3 RBC 4.51 L (4.63-6.08) M/mm3 Hgb 14.0 (13.7-17.5) gm/dl Hct 41.7 (40.1-51.0) % MCV 92.5 H (79.0-92.2) fl MCH 31.0 (25.7-32.2) pg MCHC 33.6 (32.2-35.5) g/dl RDW Std Deviation 41.7 (35.1-43.9) fL Plt Count 368 H (163-337) K/mm3 MPV 8.7 L (9.4-12.3) fl Sodium (136-145) mEq/L Potassium (3.5-5.1) mEq/L Chloride (98-107) mEq/L Carbon Dioxide (21-32) mEq/L Anion Gap (5-15) BUN (7-18) mg/dL Creatinine (0.7-1.3) mg/dL Est Cr Clr Drug Dosing mL/min Estimated GFR (MDRD) (>60) mL/min BUN/Creatinine Ratio (14-18) Glucose (70-99) mg/dL Calcium (8.5-10.1) mg/dL Stl C. cayetanensis PCR Not detected (Not Detected) Stool Rotavirus A PCR Not detected (Not Detected) Stool Astrovirus (PCR) Not detected (Not Detected) Stool Cryptosporidium PCR Not detected (Not Detected) St Sh/Enteroin Ecoli PCR Not detected (Not Detected) Stl Enterotoxigenic E PCR Not detected (Not Detected) Stool EPEC (PCR) Not detected (Not Detected) Stl E. histolytica PCR Not detected (Not Detected) Stool Giardia Lamblia PCR Not detected (Not Detected) Stool Sapovirus (PCR) Not detected (Not Detected) Stl P. shigelloides PCR Not detected (Not Detected) St Y.enterocolitica PCR Not detected (Not Detected) Stool Vibrio (PCR) Not detected (Not Detected) Stl Vibrio cholerae PCR Not detected (Not Detected) Stl Enteroaggr Ecoli PCR Not detected (Not Detected) Adenovirus (PCR) Not detected (Not Detected) Adenovirus Types 40, 41 Not detected (Not Detected) B. pertussis DNA (PCR) Not detected (Not Detected) B.parapertussis DNA PCR Not detected (Not Detected) Campylobacter (PCR) Not detected (Not Detected) C. pneumoniae DNA (PCR) Not detected (Not Detected) C. difficile (PCR) Not detected (Not Detected) Coronavirus OC43 (PCR) Not detected (Not Detected) Coronavirus HKU1 (PCR) Not detected (Not Detected) Coronavirus 229E (PCR) Not detected (Not Detected) Coronavirus NL63 (PCR) Not detected (Not Detected) E.coli Shiga Toxins Not detected (Not Detected) Human Metapneumovir PCR Not detected (Not Detected) Influenza A (RT-PCR) Not detected (Not Detected) Influenza B (RT-PCR) Not detected (Not Detected) M. pneumoniae (PCR) Not detected (Not Detected) Parainfluenza 1 (PCR) Not detected (Not Detected) Parainfluenza 2 (PCR) Not detected (Not Detected) Parainfluenza 3 (PCR) Not detected (Not Detected) Parainfluenza 4 (PCR) Not detected (Not Detected) RSV (PCR) Not detected (Not Detected) Entero/Rhino (PCR) Not detected (Not Detected) Salmonella (PCR) Detected H (Not Detected) SARS-CoV-2 (PCR) Not detected (Not Detected) Stool Norovirus GI (PCR) Not detected (Not Detected) 09/13/20 Range/Units 04:56 WBC (4.23-9.07) K/mm3 RBC (4.63-6.08) M/mm3 Hgb (13.7-17.5) gm/dl Hct (40.1-51.0) % MCV (79.0-92.2) fl MCH (25.7-32.2) pg MCHC (32.2-35.5) g/dl RDW Std Deviation (35.1-43.9) fL Plt Count (163-337) K/mm3 MPV (9.4-12.3) fl Sodium 139 (136-145) mEq/L Potassium 3.6 (3.5-5.1) mEq/L Chloride 100 (98-107) mEq/L Carbon Dioxide 28 (21-32) mEq/L Anion Gap 14.6 (5-15) BUN 6 L (7-18) mg/dL Creatinine 1.1 (0.7-1.3) mg/dL Est Cr Clr Drug Dosing 96.78 mL/min Estimated GFR (MDRD) > 60 (>60) mL/min BUN/Creatinine Ratio 5.5 L (14-18) Glucose 107 H (70-99) mg/dL Calcium 8.8 (8.5-10.1) mg/dL Stl C. cayetanensis PCR (Not Detected) Stool Rotavirus A PCR (Not Detected) Stool Astrovirus (PCR) (Not Detected) Stool Cryptosporidium PCR (Not Detected) St Sh/Enteroin Ecoli PCR (Not Detected) Stl Enterotoxigenic E PCR (Not Detected) Stool EPEC (PCR) (Not Detected) Stl E. histolytica PCR (Not Detected) Stool Giardia Lamblia PCR (Not Detected) Stool Sapovirus (PCR) (Not Detected) Stl P. shigelloides PCR (Not Detected) St Y.enterocolitica PCR (Not Detected) Stool Vibrio (PCR) (Not Detected) Stl Vibrio cholerae PCR (Not Detected) Stl Enteroaggr Ecoli PCR (Not Detected) Adenovirus (PCR) (Not Detected) Adenovirus Types 40, 41 (Not Detected) B. pertussis DNA (PCR) (Not Detected) B.parapertussis DNA PCR (Not Detected) Campylobacter (PCR) (Not Detected) C. pneumoniae DNA (PCR) (Not Detected) C. difficile (PCR) (Not Detected) Coronavirus OC43 (PCR) (Not Detected) Coronavirus HKU1 (PCR) (Not Detected) Coronavirus 229E (PCR) (Not Detected) Coronavirus NL63 (PCR) (Not Detected) E.coli Shiga Toxins (Not Detected) Human Metapneumovir PCR (Not Detected) Influenza A (RT-PCR) (Not Detected) Influenza B (RT-PCR) (Not Detected) M. pneumoniae (PCR) (Not Detected) Parainfluenza 1 (PCR) (Not Detected) Parainfluenza 2 (PCR) (Not Detected) Parainfluenza 3 (PCR) (Not Detected) Parainfluenza 4 (PCR) (Not Detected) RSV (PCR) (Not Detected) Entero/Rhino (PCR) (Not Detected) Salmonella (PCR) (Not Detected) SARS-CoV-2 (PCR) (Not Detected) Stool Norovirus GI (PCR) (Not Detected) Andrea Results Last 24 Hours: Microbiology 09/11/20 20:47 Aerobic Blood Culture - Preliminary Blood - Venous NO GROWTH AFTER 1 DAY Anaerobic Blood Culture - Preliminary NO GROWTH AFTER 1 DAY 09/11/20 20:53 Aerobic Blood Culture - Preliminary Blood - Venous - Lab Draw NO GROWTH AFTER 1 DAY Anaerobic Blood Culture - Preliminary NO GROWTH AFTER 1 DAY 09/10/20 14:05 Cryptosporidium/Giardia - Final Stool / Feces Med Orders - Current: Current Medications Acetaminophen (Acetaminophen 325 Mg Tab) 650 mg PO Q4H PRN PRN Reason: Pain (Mild 1-3)/fever Last Admin: 09/13/20 05:26 Dose: 650 mg Documented by: Enoxaparin Sodium (Enoxaparin 40 Mg/0.4 Ml Syringe) 40 mg SUBCUT Q24H TISHA Last Admin: 09/12/20 16:19 Dose: 40 mg Documented by: Hydromorphone HCl (Hydromorphone 1 Mg/Ml Syringe) 1 mg IVPUSH Q1H PRN PRN Reason: Pain Last Admin: 09/12/20 20:54 Dose: 1 mg Documented by: Piperacillin Sod/Tazobactam (Sod 4.5 gm/ Sodium Chloride) 100 mls @ 25 mls/hr IV Q8H TISHA Last Admin: 09/13/20 08:05 Dose: 25 mls/hr Documented by: Ketorolac Tromethamine (Ketorolac 10 Mg Tab) 10 mg PO Q6H PRN PRN Reason: joint pain Stop: 09/18/20 09:08 Ondansetron HCl (Ondansetron 4 Mg Tab.Dis) 4 mg PO Q4H PRN PRN Reason: nausea, able to take PO Last Admin: 09/12/20 06:46 Dose: 4 mg Documented by: Ondansetron HCl (Ondansetron 4 Mg/2 Ml Sdv) 4 mg IV Q6H PRN PRN Reason: Nausea/Vomiting Last Admin: 09/13/20 02:25 Dose: 4 mg Documented by: Oxycodone HCl (Oxycodone 5 Mg Tab) 5 mg PO Q4H PRN PRN Reason: Pain Last Admin: 09/13/20 05:27 Dose: 5 mg Documented by: Simethicone (Simethicone 80 Mg Tab.Chew) 80 mg PO Q4H PRN PRN Reason: GAS PAINS Last Admin: 09/13/20 02:25 Dose: 80 mg Documented by: Sodium Chloride (Sodium Chloride 0.9% 10 Ml Syringe) 10 ml FLUSH ONETIME PRN PRN Reason: Keep Vein Open Last Admin: 09/12/20 10:58 Dose: 10 ml Documented by: Temazepam (Temazepam 7.5 Mg Cap) 7.5 mg PO BEDTIME PRN PRN Reason: Sleep Discontinued Medications Hydrocodone Bitart/Acetaminophen (Acetaminophen/Hydrocodone 325-5 Mg Tab) 2 tab PO ONETIME ONE Stop: 09/11/20 01:58 Last Admin: 09/11/20 02:09 Dose: 2 tab Documented by: Hydrocodone Bitart/Acetaminophen (Acetaminophen/Hydrocodone 325-10 Mg Tab) 1 tab PO Q4H PRN PRN Reason: Pain Last Admin: 09/12/20 05:17 Dose: 1 tab Documented by: Diatrizoate Meglum/Diatrizoate Sod (Diatrizoate Meglumine/Diatrizoate Sodium 37% 120 Ml Bottle) 70 ml PO ONETIME ONE Stop: 09/12/20 10:31 Last Admin: 09/12/20 10:47 Dose: 60 ml Documented by: Enoxaparin Sodium (Enoxaparin 30 Mg/0.3 Ml Syringe) 30 mg SUBCUT Q24H [facility] Last Admin: 09/11/20 16:51 Dose: 30 mg Documented by: Hydromorphone HCl (Hydromorphone 1 Mg/Ml Syringe) 1 mg IM ONETIME ONE Stop: 09/11/20 02:53 Last Admin: 09/11/20 02:57 Dose: 1 mg Documented by: Hydromorphone HCl (Hydromorphone 1 Mg/Ml Syringe) 1 mg IM ONETIME ONE Stop: 09/11/20 04:15 Last Admin: 09/11/20 04:32 Dose: 1 mg Documented by: Hydromorphone HCl (Hydromorphone 1 Mg/Ml Syringe) 1 mg IM ONETIME ONE Stop: 09/11/20 06:43 Last Admin: 09/11/20 06:55 Dose: 1 mg Documented by: Hydromorphone HCl (Hydromorphone 0.5 Mg/0.5 Ml Syringe) 0.5 mg IVPUSH Q2H PRN PRN Reason: Pain (severe 7-10) Last Admin: 09/12/20 02:52 Dose: 0.5 mg Documented by: Hydromorphone HCl (Hydromorphone 1 Mg/Ml Syringe) 1 mg IVPUSH Q2H PRN PRN Reason: Pain Sodium Chloride (Normal Saline) 1,000 mls @ 150 mls/hr IV ASDIRECTED [facility] Last Admin: 09/12/20 05:17 Dose: 150 mls/hr Documented by: Piperacillin Sod/Tazobactam (Sod 4.5 gm/ Sodium Chloride) 100 mls @ 200 mls/hr IV ONETIME ONE Stop: 09/12/20 09:29 Last Admin: 09/12/20 09:22 Dose: 200 mls/hr Documented by: Lactated Ringer's (Ringers, Lactated) 1,000 mls @ 100 mls/hr IV ASDIRECTED [facility] Last Admin: 09/12/20 11:58 Dose: 100 mls/hr Documented by: Potassium Chloride 10 meq/ (Premix) 100 mls @ 100 mls/hr IV ONETIME ONE Stop: 09/12/20 10:06 Last Admin: 09/12/20 12:08 Dose: Not Given Documented by: Potassium Chloride 10 meq/ (Premix) 100 mls @ 100 mls/hr IV Q1H [facility] Stop: 09/12/20 13:14 Last Admin: 09/12/20 12:08 Dose: Not Given Documented by: Magnesium Sulfate/Dextrose 1 (gm/ Premix) 100 mls @ 100 mls/hr IV Q1H TISHA Stop: 09/12/20 10:14 Last Admin: 09/12/20 09:47 Dose: 100 mls/hr Documented by: Metronidazole 500 mg/ Premix 100 mls @ 100 mls/hr IV Q8H TISHA Last Admin: 09/12/20 10:57 Dose: 100 mls/hr Documented by: Potassium Chloride 10 meq/ (Premix) 100 mls @ 100 mls/hr IV Q1H TISHA Stop: 09/12/20 14:59 Last Admin: 09/12/20 12:06 Dose: 100 mls/hr Documented by: Iopamidol (Iopamidol 612 Mg/Ml 100 Ml Bottle) 100 ml IVPUSH ONETIME ONE Stop: 09/12/20 10:31 Last Admin: 09/12/20 10:47 Dose: 100 ml Documented by: Ketorolac Tromethamine (Ketorolac 15 Mg/Ml Sdv) 15 mg IVPUSH ONETIME ONE Stop: 09/12/20 23:00 Last Admin: 09/13/20 00:09 Dose: 15 mg Documented by: Potassium Chloride (Potassium Chloride 20 Meq Tab.Er) 20 meq PO ONETIME ONE Stop: 09/12/20 14:01 Last Admin: 09/12/20 13:53 Dose: 20 meq Documented by: - Exam Physical Findings Comments:: Gen: no acute distress HEENT: NCAT EOMI MMM CV: RRR normal s1 s2 Lungs: CTAB Abd: left sided tenderness no rebound or guarding Neuro: nonfocal screening exam - Patient Data Lab Results Last 24 hrs: Laboratory Results - last 24 hr 09/10/20 09/11/20 09/13/20 Range/Units 14:05 03:00 04:56 WBC 10.67 H (4.23-9.07) K/mm3 RBC 4.51 L (4.63-6.08) M/mm3 Hgb 14.0 (13.7-17.5) gm/dl Hct 41.7 (40.1-51.0) % MCV 92.5 H (79.0-92.2) fl MCH 31.0 (25.7-32.2) pg MCHC 33.6 (32.2-35.5) g/dl RDW Std Deviation 41.7 (35.1-43.9) fL Plt Count 368 H (163-337) K/mm3 MPV 8.7 L (9.4-12.3) fl Sodium (136-145) mEq/L Potassium (3.5-5.1) mEq/L Chloride (98-107) mEq/L Carbon Dioxide (21-32) mEq/L Anion Gap (5-15) BUN (7-18) mg/dL Creatinine (0.7-1.3) mg/dL Est Cr Clr Drug Dosing mL/min Estimated GFR (MDRD) (>60) mL/min BUN/Creatinine Ratio (14-18) Glucose (70-99) mg/dL Calcium (8.5-10.1) mg/dL Stl C. cayetanensis PCR Not detected (Not Detected) Stool Rotavirus A PCR Not detected (Not Detected) Stool Astrovirus (PCR) Not detected (Not Detected) Stool Cryptosporidium PCR Not detected (Not Detected) St Sh/Enteroin Ecoli PCR Not detected (Not Detected) Stl Enterotoxigenic E PCR Not detected (Not Detected) Stool EPEC (PCR) Not detected (Not Detected) Stl E. histolytica PCR Not detected (Not Detected) Stool Giardia Lamblia PCR Not detected (Not Detected) Stool Sapovirus (PCR) Not detected (Not Detected) Stl P. shigelloides PCR Not detected (Not Detected) St Y.enterocolitica PCR Not detected (Not Detected) Stool Vibrio (PCR) Not detected (Not Detected) Stl Vibrio cholerae PCR Not detected (Not Detected) Stl Enteroaggr Ecoli PCR Not detected (Not Detected) Adenovirus (PCR) Not detected (Not Detected) Adenovirus Types 40, 41 Not detected (Not Detected) B. pertussis DNA (PCR) Not detected (Not Detected) B.parapertussis DNA PCR Not detected (Not Detected) Campylobacter (PCR) Not detected (Not Detected) C. pneumoniae DNA (PCR) Not detected (Not Detected) C. difficile (PCR) Not detected (Not Detected) Coronavirus OC43 (PCR) Not detected (Not Detected) Coronavirus HKU1 (PCR) Not detected (Not Detected) Coronavirus 229E (PCR) Not detected (Not Detected) Coronavirus NL63 (PCR) Not detected (Not Detected) E.coli Shiga Toxins Not detected (Not Detected) Human Metapneumovir PCR Not detected (Not Detected) Influenza A (RT-PCR) Not detected (Not Detected) Influenza B (RT-PCR) Not detected (Not Detected) M. pneumoniae (PCR) Not detected (Not Detected) Parainfluenza 1 (PCR) Not detected (Not Detected) Parainfluenza 2 (PCR) Not detected (Not Detected) Parainfluenza 3 (PCR) Not detected (Not Detected) Parainfluenza 4 (PCR) Not detected (Not Detected) RSV (PCR) Not detected (Not Detected) Entero/Rhino (PCR) Not detected (Not Detected) Salmonella (PCR) Detected H (Not Detected) SARS-CoV-2 (PCR) Not detected (Not Detected) Stool Norovirus GI (PCR) Not detected (Not Detected) 09/13/20 Range/Units 04:56 WBC (4.23-9.07) K/mm3 RBC (4.63-6.08) M/mm3 Hgb (13.7-17.5) gm/dl Hct (40.1-51.0) % MCV (79.0-92.2) fl MCH (25.7-32.2) pg MCHC (32.2-35.5) g/dl RDW Std Deviation (35.1-43.9) fL Plt Count (163-337) K/mm3 MPV (9.4-12.3) fl Sodium 139 (136-145) mEq/L Potassium 3.6 (3.5-5.1) mEq/L Chloride 100 (98-107) mEq/L Carbon Dioxide 28 (21-32) mEq/L Anion Gap 14.6 (5-15) BUN 6 L (7-18) mg/dL Creatinine 1.1 (0.7-1.3) mg/dL Est Cr Clr Drug Dosing 96.78 mL/min Estimated GFR (MDRD) > 60 (>60) mL/min BUN/Creatinine Ratio 5.5 L (14-18) Glucose 107 H (70-99) mg/dL Calcium 8.8 (8.5-10.1) mg/dL Stl C. cayetanensis PCR (Not Detected) Stool Rotavirus A PCR (Not Detected) Stool Astrovirus (PCR) (Not Detected) Stool Cryptosporidium PCR (Not Detected) St Sh/Enteroin Ecoli PCR (Not Detected) Stl Enterotoxigenic E PCR (Not Detected) Stool EPEC (PCR) (Not Detected) Stl E. histolytica PCR (Not Detected) Stool Giardia Lamblia PCR (Not Detected) Stool Sapovirus (PCR) (Not Detected) Stl P. shigelloides PCR (Not Detected) St Y.enterocolitica PCR (Not Detected) Stool Vibrio (PCR) (Not Detected) Stl Vibrio cholerae PCR (Not Detected) Stl Enteroaggr Ecoli PCR (Not Detected) Adenovirus (PCR) (Not Detected) Adenovirus Types 40, 41 (Not Detected) B. pertussis DNA (PCR) (Not Detected) B.parapertussis DNA PCR (Not Detected) Campylobacter (PCR) (Not Detected) C. pneumoniae DNA (PCR) (Not Detected) C. difficile (PCR) (Not Detected) Coronavirus OC43 (PCR) (Not Detected) Coronavirus HKU1 (PCR) (Not Detected) Coronavirus 229E (PCR) (Not Detected) Coronavirus NL63 (PCR) (Not Detected) E.coli Shiga Toxins (Not Detected) Human Metapneumovir PCR (Not Detected) Influenza A (RT-PCR) (Not Detected) Influenza B (RT-PCR) (Not Detected) M. pneumoniae (PCR) (Not Detected) Parainfluenza 1 (PCR) (Not Detected) Parainfluenza 2 (PCR) (Not Detected) Parainfluenza 3 (PCR) (Not Detected) Parainfluenza 4 (PCR) (Not Detected) RSV (PCR) (Not Detected) Entero/Rhino (PCR) (Not Detected) Salmonella (PCR) (Not Detected) SARS-CoV-2 (PCR) (Not Detected) Stool Norovirus GI (PCR) (Not Detected) Result Diagrams: 09/13/20 04:56 09/13/20 04:56 Andrea Results Last 24 hrs: Microbiology 09/11/20 20:47 Aerobic Blood Culture - Preliminary Blood - Venous NO GROWTH AFTER 1 DAY Anaerobic Blood Culture - Preliminary NO GROWTH AFTER 1 DAY 09/11/20 20:53 Aerobic Blood Culture - Preliminary Blood - Venous - Lab Draw NO GROWTH AFTER 1 DAY Anaerobic Blood Culture - Preliminary NO GROWTH AFTER 1 DAY 09/10/20 14:05 Cryptosporidium/Giardia - Final Stool / Feces Sepsis Event Note - Evaluation Sepsis Screening Result: No Definite Risk - Focused Exam Vital Signs: Vital Signs Temp Pulse Resp BP Pulse Ox 09/13/20 07:59 99.0 F 77 12 119/63 96 - Problem List Review Problem List Initiated/Reviewed/Updated: Yes - My Orders Last 24 Hours: My Active Orders 09/12/20 12:50 oxyCODONE 5 mg PO Q4H PRN 09/12/20 13:18 Patient Status [ADT] Routine 09/12/20 15:07 Simethicone 80 mg PO Q4H PRN 09/12/20 16:00 Enoxaparin [Lovenox] 40 mg SUBCUT Q24H 09/12/20 17:00 Piperacillin/Tazobactam [Piperacil-Tazobact] 4.5 gm Sodium Chloride 0.9% [Normal Saline] 100 ml IV Q8H 09/13/20 Breakfast Regular Diet [DIET] 09/13/20 09:04 Ambulate [RC] BID 09/13/20 09:07 Ketorolac [Toradol] 10 mg PO Q6H PRN - Plan Plan:: 09/10 The patient is a 34-year-old gentleman who had been admitted to observation secondary to his joint pain as well as his diarrhea which is likely infectious in nature. Multiple stool studies are currently pending. Have also ordered studies for Giardia. The patient will be kept on IV fluids normal saline at 150 mL/h to help with his dehydration. The patient will also be afforded narcotic pain medications Dilaudid 1 mg IV every 2 hours as needed for pain. The patient will also be anticoagulated for DVT prophylaxis with the use of Lovenox at 30 mg subcutaneous on a daily basis. Repeat laboratory studies have been ordered. Consider Flagyl if Giardia tests are positive. Viral enteritis, to include Zika, is also in the differential for him. 09/12 CT AP notable for diverticulitis 09/13 Stool culture growing Salmonella 1. Sigmoid diverticulitis+ acute diarrhea+abdominal pain secondary to salmonella -clear liquid diet ->ADAT -continue zosyn -dc flagyl -follow up on stool studies/Cx -dc IVF -repeat lactate normal -outpatient colonoscopy in 6-10 weeks -DC IV dilaudid/IV toradol 2. Hypokalemia and hypomagnesemia -electrolyte replacement -repeat BMP in AM DVT ppx: lovenox Code Status: Full Dispo: likely discharge home tomorrow if tolerating diet; fever free 24 hours, diarrhea stabilizing; off IVF/IV pain meds
[2020-09-13] MEDS: Ketorolac 10 MG Tab PO PRN ×2 (11:16→20:26)
[2020-09-13] MEDS: Enoxaparin 40 MG/0.4 ML Syringe SUBCUT SCH (16:22)
[2020-09-14] MEDS: Ketorolac 10 MG Tab PO PRN (04:15)
[2020-09-14] MEDS: Piperacillin/Tazobactam 4.5 GM in Sodium Chloride 0.9% 100 ML IV SCH ×2 (04:16→08:10)
[2020-09-14] MEDS ORDERED: predniSONE 20 MG Tab PO SCH (12:00)
--- NOTE | 2020-09-14 12:42 | PCM.DCSUM1 ---
Discharge Summary - Hospital Course Free Text/Narrative:: 1. Acute infectious diarrhea secondary to Salmonella. Patient contracted infectious diarrhea from recent trip to [place]. Treated with Zosyn while admitted. Patient's nausea, and abdominal pain were controlled with symptomatic relief from antiemetics and narcotics as necessary. On day 3 the patient was able to tolerate diet without any adverse effects. Patient wished to go home. Antibiotics transition to ciprofloxacin 500 mg twice daily to complete a 14-day course of therapy. Encouraged to have food with antibiotic administration. Encourage probiotics. 2. 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 Patient started on 40 mg of oral prednisone the morning prior to discharge. For 2 days the patient was not covered with corticosteroids for fear that his infection would not be controlled. Patient should follow-up outpatient regarding further involvement. Patient worked with PT and OT considering the involvement of both of his ankles. The patient was able to walk with assistance using cane and walker. He has assistive devices at home which he can use. He was kept on DVT prophylaxis throughout admission. HPI Initial Comments: nitial Comments - Free Text/Narative: The patient is an otherwise healthy 34-year-old gentleman who had presented to the emergency department with severe watery diarrhea that has been associated with severe bilateral ankle and knee pain. The patient reports that for the past 6 days that he has had severe watery and foul-smelling diarrhea up to 20 times a day. The patient also reports that he had returned from [facility] on September 04, 2020. The patient had stayed his entire time in [facility] [place] the [place]. Further, the patient reports that he has had severe bilateral leg pain which started approximately 4 days ago. He has had difficulty ambulating due to the pain in his knees and ankles. The patient has denied any fever or chills. He has had some nausea but no vomiting. Abdominal cramping generalized. The patient has had no specific aggravating or relieving factors. The patient also reports that he has not been taking any medications. He does not use tobacco. While in the emergency department the patient had required the use of Dilaudid to help with his pain in his joints. Onset of Symptoms: Reports: Gradual Duration of Symptoms: Reports: Day(s):, Getting Worse Location: Reports: Abdomen, Generalized Quality: Reports: Burning, Stabbing Severity: Moderate Improves with: Reports: Medication, Rest Worsens with: Reports: Movement Context: Reports: Travel (Travel to [place] see HPI). Denies: Sick Contact Associated Symptoms: Reports: No Other Symptoms Bilateral Lower Leg Pain Score (Numeric/FACES): 10 - Related Data Allergies/Adverse Reactions: Allergies Allergy/AdvReac Type Severity Reaction Status Date / Time No Known Allergies Allergy Verified 09/11/20 09:12 Home Medications: Home Meds . [No Known Home Meds] 09/10/20 [History] Past Medical History HEENT History: Reports: Impaired Vision Cardiovascular History: Reports: None Respiratory History: Reports: Bronchitis, Recurrent, Pneumonia, Recurrent Gastrointestinal History: Reports: GERD (treated prn) Genitourinary History: Reports: None Musculoskeletal History: Reports: Back Pain, Chronic Neurological History: Reports: None Psychiatric History: Reports: None Endocrine/Metabolic History: Reports: None Hematologic History: Reports: None Immunologic History: Reports: None Oncologic (Cancer) History: Reports: None Dermatologic History: Reports: None - Infectious Disease History Infectious Disease History: Reports: Novel Coronavirus (dx'd Jan 2020) - Past Surgical History HEENT Surgical History: Reports: Oral Surgery (dental extractions) Social & Family History - Family History Family Medical History: No Pertinent Family History GI: Reports: Inflammatory Bowel Disease (Sister with ulcerative colitis) Other GI Family History: UC - Tobacco Use Tobacco Use Status *Q: Never Tobacco User Second Hand Smoke Exposure: No - Caffeine Use Caffeine Use: Reports: None - Recreational Drug Use Recreational Drug Use: No - Living Situation & Occupation Living situation: Reports: , with Spouse, with Family (1 7-year old) 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) H&P Review of Systems - Review of Systems: Review Of Systems: See Below General: Reports: Weakness, Decreased Appetite HEENT: Reports: No Symptoms Pulmonary: Reports: No Symptoms Cardiovascular: Reports: No Symptoms Gastrointestinal: Reports: Abdominal Pain, Diarrhea, Nausea Genitourinary: Reports: No Symptoms Musculoskeletal: Reports: Other (Multiple major joint pains) Skin: Reports: No Symptoms Psychiatric: Reports: No Symptoms Neurological: Reports: No Symptoms Hematologic/Lymphatic: Reports: No Symptoms Immunologic: Reports: No Symptoms Exam - Exam Exam: See Below - Vital Signs Vital Signs: Last Vital Signs Temp 36.7 C 09/11/20 01:26 Pulse 85 09/11/20 01:26 Resp 14 09/11/20 01:26 BP 143/87 H 09/11/20 01:26 Pulse Ox 95 09/11/20 01:26 Weight: 86.183 kg - Exam Quality Assessment: No: Supplemental Oxygen, DVT Prophylaxis General: Alert, Oriented, Cooperative HEENT: Conjunctiva Clear, EACs Clear, EOMI, Hearing Intact, PERRLA. No: Mucosa Moist & [place] (Dry) Neck: Supple, Trachea Midline Lungs: Clear to Auscultation, Normal Respiratory Effort Cardiovascular: Regular Rate, Regular Rhythm, Normal S1, Normal S2 GI/Abdominal Exam: Soft, No Distention, Tender (Mild generalized). No: Normal Bowel Sounds (Hyperactive), Guarding, Rigid, Rebound (Male) Exam: Deferred Rectal (Males) Exam: Deferred Back Exam: Normal Inspection, Full Range of Motion Extremities: Joint Swelling (Bilateral ankles), Limited Range of Motion (Painful passive range of motion). No: Normal Range of Motion (Not normal due to pain) Skin: Warm, Dry, Intact Neurological: Cranial Nerves Intact, Normal Speech. No: Normal Gait Neuro Extensive - Mental Status: Alert, Oriented x3, Normal Mood/Affect, Normal Cognition, Memory Intact Psychiatric: Alert, Normal Affect, Normal Mood - Discharge Data Discharge Date: 09/14/20 Discharge Disposition: Home, Self-Care 01 Condition: Good - Referral to Home Health Primary Care Physician: PCP None - Patient Summary/Data Consults: Consultations 09/14/20 11:47 Consult to Physical Therapy [PT Evaluation and Treatment] [CONS] Routine - Patient Instructions Diet: GI Soft/Low Residue/Low Fiber Activity: As Tolerated - Discharge Plan *PRESCRIPTION DRUG MONITORING PROGRAM REVIEWED*: Not Applicable *COPY OF PRESCRIPTION DRUG MONITORING REPORT IN PATIENT MARGARET: Not Applicable Prescriptions/Med Rec: Ciprofloxacin HCl [Cipro] 500 mg PO BID #24 tablet RX: predniSONE 40 mg PO DAILY #4 tablet Home Medications: Home Meds Ciprofloxacin HCl [Cipro] 500 mg PO BID #24 tablet 09/14/20 [Rx] RX: predniSONE 40 mg PO DAILY #4 tablet 09/14/20 [Rx] Oxygen Therapy Mode: Room Air Patient Handouts: Diverticulitis, [id number], Salmonella Gastroenteritis, Adult Forms: ED Department Discharge Referrals: Jacklyn Land MD [Physician] - 09/26/20 2:30 pm (This is appt. to [facility] and also hospital follow up, Please arrive at 2:30 for check in.) - Discharge Summary/Plan Comment DC Time >30 min.: Yes - General Info Date of Service: 09/14/20 Admission Dx/Problem (Free Text: Admission Diagnosis/Problem Admission Diagnosis/Problem Severe watery diarrhea with severe arthropathy of multiple joints. Subjective Update: Acute events overnight. No specific nursing concerns. Patient continues to ambulate better considering his polyarthropathy which involves both ankles. Diet is being tolerated. No nausea or vomiting. Functional Status: Reports: Pain Controlled - Review of Systems General: Reports: No Symptoms HEENT: Reports: No Symptoms Pulmonary: Reports: No Symptoms Cardiovascular: Reports: No Symptoms Gastrointestinal: Reports: No Symptoms Genitourinary: Reports: No Symptoms Musculoskeletal: Reports: Joint Pain, Joint Swelling Skin: Reports: No Symptoms Neurological: Reports: No Symptoms Psychiatric: Reports: No Symptoms - Patient Data Vitals - Most Recent: Last Vital Signs Temp 98.1 F 09/14/20 08:17 Pulse 95 09/14/20 08:17 Resp 14 09/14/20 08:17 BP 126/90 09/14/20 08:17 Pulse Ox 97 09/14/20 08:17 Weight - Most Recent: 193 lb 4.8 oz I&O - Last 24 hours: Intake & Output 09/13/20 09/14/20 09/14/20 22:59 06:59 14:59 Intake Total 1100 600 Balance 1100 600 Lab Results - Last 24 hrs: Laboratory Results - last 24 hr 09/14/20 09/14/20 Range/Units 06:47 06:47 WBC 8.75 (4.23-9.07) K/mm3 RBC 4.13 L (4.63-6.08) M/mm3 Hgb 12.9 L (13.7-17.5) gm/dl Hct 38.5 L (40.1-51.0) % MCV 93.2 H (79.0-92.2) fl MCH 31.2 (25.7-32.2) pg MCHC 33.5 (32.2-35.5) g/dl RDW Std Deviation 42.3 (35.1-43.9) fL Plt Count 389 H (163-337) K/mm3 MPV 8.5 L (9.4-12.3) fl Neut % (Auto) 72.6 H (34.0-67.9) % Lymph % (Auto) 15.5 L (21.8-53.1) % [place] % (Auto) 10.5 (5.3-12.2) % Eos % (Auto) 0.9 (0.8-7.0) Baso % (Auto) 0.3 (0.1-1.2) % Neut # (Auto) 6.34 H (1.78-5.38) K/mm3 Lymph # (Auto) 1.36 (1.32-3.57) K/mm3 [place] # (Auto) 0.92 H (0.30-0.82) K/mm3 Eos # (Auto) 0.08 (0.04-0.54) K/mm3 Baso # (Auto) 0.03 (0.01-0.08) K/mm3 Sodium 138 (136-145) mEq/L Potassium 3.2 L (3.5-5.1) mEq/L Chloride 101 (98-107) mEq/L Carbon Dioxide 25 (21-32) mEq/L Anion Gap 15.2 H (5-15) BUN 15 (7-18) mg/dL Creatinine 1.0 (0.7-1.3) mg/dL Est Cr Clr Drug Dosing 106.46 mL/min Estimated GFR (MDRD) > 60 (>60) mL/min BUN/Creatinine Ratio 15.0 (14-18) Glucose 99 (70-99) mg/dL Calcium 8.6 (8.5-10.1) mg/dL ELVIN Results - Last 24 hrs: Microbiology 09/11/20 20:47 Aerobic Blood Culture - Preliminary Blood - Venous NO GROWTH AFTER 2 DAYS Anaerobic Blood Culture - Preliminary NO GROWTH AFTER 2 DAYS 09/11/20 20:53 Aerobic Blood Culture - Preliminary Blood - Venous - Lab Draw NO GROWTH AFTER 2 DAYS Anaerobic Blood Culture - Preliminary NO GROWTH AFTER 2 DAYS Med Orders - Current: Current Medications Acetaminophen (Acetaminophen 325 Mg Tab) 650 mg PO Q4H PRN PRN Reason: Pain (Mild 1-3)/fever Last Admin: 09/13/20 18:53 Dose: 650 mg Documented by: Enoxaparin Sodium (Enoxaparin 40 Mg/0.4 Ml Syringe) 40 mg SUBCUT Q24H TISHA Last Admin: 09/13/20 16:22 Dose: 40 mg Documented by: Hydromorphone HCl (Hydromorphone 1 Mg/Ml Syringe) 1 mg IVPUSH Q1H PRN PRN Reason: Pain Last Admin: 09/12/20 20:54 Dose: 1 mg Documented by: Piperacillin Sod/Tazobactam (Sod 4.5 gm/ Sodium Chloride) 100 mls @ 25 mls/hr IV Q8H TISHA Last Admin: 09/14/20 08:10 Dose: 25 mls/hr Documented by: Ketorolac Tromethamine (Ketorolac 10 Mg Tab) 10 mg PO Q6H PRN PRN Reason: joint pain Stop: 09/18/20 09:08 Last Admin: 09/14/20 04:15 Dose: 10 mg Documented by: Ondansetron HCl (Ondansetron 4 Mg Tab.Dis) 4 mg PO Q4H PRN PRN Reason: nausea, able to take PO Last Admin: 09/12/20 06:46 Dose: 4 mg Documented by: Ondansetron HCl (Ondansetron 4 Mg/2 Ml Sdv) 4 mg IV Q6H PRN PRN Reason: Nausea/Vomiting Last Admin: 09/13/20 02:25 Dose: 4 mg Documented by: Oxycodone HCl (Oxycodone 5 Mg Tab) 5 mg PO Q4H PRN PRN Reason: Pain Last Admin: 09/13/20 05:27 Dose: 5 mg Documented by: Prednisone (Prednisone 20 Mg Tab) 40 mg PO DAILY [facility] Stop: 09/18/20 09:01 Last Admin: 09/14/20 12:24 Dose: 40 mg Documented by: Simethicone (Simethicone 80 Mg Tab.Chew) 80 mg PO Q4H PRN PRN Reason: GAS PAINS Last Admin: 09/13/20 13:28 Dose: 80 mg Documented by: Temazepam (Temazepam 7.5 Mg Cap) 7.5 mg PO BEDTIME PRN PRN Reason: Sleep Discontinued Medications Hydrocodone Bitart/Acetaminophen (Acetaminophen/Hydrocodone 325-5 Mg Tab) 2 tab PO ONETIME ONE Stop: 09/11/20 01:58 Last Admin: 09/11/20 02:09 Dose: 2 tab Documented by: Hydrocodone Bitart/Acetaminophen (Acetaminophen/Hydrocodone 325-10 Mg Tab) 1 tab PO Q4H PRN PRN Reason: Pain Last Admin: 09/12/20 05:17 Dose: 1 tab Documented by: Diatrizoate Meglum/Diatrizoate Sod (Diatrizoate Meglumine/Diatrizoate Sodium 37% 120 Ml Bottle) 70 ml PO ONETIME ONE Stop: 09/12/20 10:31 Last Admin: 09/12/20 10:47 Dose: 60 ml Documented by: Enoxaparin Sodium (Enoxaparin 30 Mg/0.3 Ml Syringe) 30 mg SUBCUT Q24H [facility] Last Admin: 09/11/20 16:51 Dose: 30 mg Documented by: Hydromorphone HCl (Hydromorphone 1 Mg/Ml Syringe) 1 mg IM ONETIME ONE Stop: 09/11/20 02:53 Last Admin: 09/11/20 02:57 Dose: 1 mg Documented by: Hydromorphone HCl (Hydromorphone 1 Mg/Ml Syringe) 1 mg IM ONETIME ONE Stop: 09/11/20 04:15 Last Admin: 09/11/20 04:32 Dose: 1 mg Documented by: Hydromorphone HCl (Hydromorphone 1 Mg/Ml Syringe) 1 mg IM ONETIME ONE Stop: 09/11/20 06:43 Last Admin: 09/11/20 06:55 Dose: 1 mg Documented by: Hydromorphone HCl (Hydromorphone 0.5 Mg/0.5 Ml Syringe) 0.5 mg IVPUSH Q2H PRN PRN Reason: Pain (severe 7-10) Last Admin: 09/12/20 02:52 Dose: 0.5 mg Documented by: Hydromorphone HCl (Hydromorphone 1 Mg/Ml Syringe) 1 mg IVPUSH Q2H PRN PRN Reason: Pain Sodium Chloride (Normal Saline) 1,000 mls @ 150 mls/hr IV ASDIRECTED [facility] Last Admin: 09/12/20 05:17 Dose: 150 mls/hr Documented by: Piperacillin Sod/Tazobactam (Sod 4.5 gm/ Sodium Chloride) 100 mls @ 200 mls/hr IV ONETIME ONE Stop: 09/12/20 09:29 Last Admin: 09/12/20 09:22 Dose: 200 mls/hr Documented by: Lactated Ringer's (Ringers, Lactated) 1,000 mls @ 100 mls/hr IV ASDIRECTED [facility] Last Admin: 09/12/20 11:58 Dose: 100 mls/hr Documented by: Potassium Chloride 10 meq/ (Premix) 100 mls @ 100 mls/hr IV ONETIME ONE Stop: 09/12/20 10:06 Last Admin: 09/12/20 12:08 Dose: Not Given Documented by: Potassium Chloride 10 meq/ (Premix) 100 mls @ 100 mls/hr IV Q1H [facility] Stop: 09/12/20 13:14 Last Admin: 09/12/20 12:08 Dose: Not Given Documented by: Magnesium Sulfate/Dextrose 1 (gm/ Premix) 100 mls @ 100 mls/hr IV Q1H [facility] Stop: 09/12/20 10:14 Last Admin: 09/12/20 09:47 Dose: 100 mls/hr Documented by: Metronidazole 500 mg/ Premix 100 mls @ 100 mls/hr IV Q8H [facility] Last Admin: 09/12/20 10:57 Dose: 100 mls/hr Documented by: Potassium Chloride 10 meq/ (Premix) 100 mls @ 100 mls/hr IV Q1H [facility] Stop: 09/12/20 14:59 Last Admin: 09/12/20 12:06 Dose: 100 mls/hr Documented by: Iopamidol (Iopamidol 612 Mg/Ml 100 Ml Bottle) 100 ml IVPUSH ONETIME ONE Stop: 09/12/20 10:31 Last Admin: 09/12/20 10:47 Dose: 100 ml Documented by: Ketorolac Tromethamine (Ketorolac 15 Mg/Ml Sdv) 15 mg IVPUSH ONETIME ONE Stop: 09/12/20 23:00 Last Admin: 09/13/20 00:09 Dose: 15 mg Documented by: Potassium Chloride (Potassium Chloride 20 Meq Tab.Er) 20 meq PO ONETIME ONE Stop: 09/12/20 14:01 Last Admin: 09/12/20 13:53 Dose: 20 meq Documented by: Sodium Chloride (Sodium Chloride 0.9% 10 Ml Syringe) 10 ml FLUSH ONETIME PRN PRN Reason: Keep Vein Open Last Admin: 09/12/20 10:58 Dose: 10 ml Documented by: - Exam General: Reports: Alert HEENT: Reports: Pupils Equal Neck: Reports: Supple Lungs: Reports: Clear to Auscultation Cardiovascular: Reports: Regular Rate, Regular Rhythm GI/Abdominal Exam: Normal Bowel Sounds, Soft, Non-Tender Extremities: Normal Inspection Skin: Reports: Warm, Dry
== END 2020-09-14 13:50 | disposition home or self-care (01) | DRG 549 ==
LOC: JD.ED 01:16 → JD.MS 06:58 → OBSVTOIN 09-12 13:18
PROVIDERS: ADMIT Internal Medicine; ATTEND Internal Medicine
DX: M00.9 Pyogenic arthritis, unspecified (principal); A02.0 Salmonella enteritis; K57.32 Diverticulitis of large intestine without perforation or abscess without bleeding; E87.6 Hypokalemia; E83.42 Hypomagnesemia; Z20.822 Contact with and (suspected) exposure to COVID-19; H54.7 Unspecified visual loss; K21.9 Gastro-esophageal reflux disease without esophagitis; M54.9 Dorsalgia, unspecified; G89.29 Other chronic pain; E86.0 Dehydration; Z87.01 Personal history of pneumonia (recurrent)
CPT/HCPCS: 36415; 74177; 74177-26; 80048; 80053; 82550; 83605; 83735; 85025; 85027; 86140; 87040; 87328; 87329; 87486; 87507; 87581; 87633; 87798; 96365; 96367; 96368; 96372; 96375; 96376; 99219; 99232; 99239; 99284; 99284-25; A9270-GY; G0378; J1170; J1650; J1885; J2405; J2543; J3475; J3480; J3490; J7030; J7120; J7512; Q9967; U0002